=== PATIENT | female | born 1995 | race Caucasian/White ===

== ENCOUNTER → 2024-05-22 | Outpatient (CLI) | payer BC, SELFPAY ==
[2024-05-29 00:07] LABS: HPV APTIMA, High Risk Negative (Negative)
[2024-05-30 10:25] LABS: HPV Reflexed? YES, CHARGE PATIENT
== END | disposition home or self-care (01) ==
LOC: LABSPEC 10:07
PROVIDERS: Referring Provider Nurse Practitioner Women's Health; Visit Provider Nurse Practitioner Women's Health
DX: Z12.4 Encounter for screening for malignant neoplasm of cervix (principal)
CPT/HCPCS: 87624; 88175; G0145

== ENCOUNTER 2024-07-02 10:00 | Day surgery (SDC) | payer BC, SELFPAY ==
[2024-07-02] VITALS (11 sets, daily range): BP systolic 133–169; BP diastolic 89–118; PULSE 58–104; RESP 14–18; TEMP 36.1–37.3; O2SAT 97–100; BMI 26.2
--- NOTE | 2024-07-02 10:41 | US_ITS ---
PROCEDURE: TRANSVAGINAL NON- 07/02/2024 REASON FOR EXAM: LEFT OVARIAN PAIN, MASS, EVAL FOR TORSION TECHNIQUE: Transvaginal pelvic ultrasound COMPARISON: None FINDINGS: Measurements: Uterus: 7.7 cm x 3.1 cm x 2.8 cm with a volume of 35.2 mL Endometrial Thickness: 2.2 cm Right Ovary: 3.4 cm x 3 cm x 2.7 cm with a volume of 14.24 mL. Left Ovary: 6.2 cm x 7.4 cm x 3.8 cm with a volume of 90 mL. Uterus: Unremarkable Endometrium: Endometrial thickening Right ovary: Normal size and echotexture. Left ovary: Heterogeneous mass within the left ovary. Decreased blood flow. Torsion should be ruled out. Other: US/Transvaginal Non- IMPRESSION: Heterogeneous mass in nonenlarged left ovary with decreased blood flow suggesti ve of torsion. Reading Location: [place] [id number]
--- NOTE | 2024-07-02 10:42 | EDS_ITS ---
HPI History of Present Illness Chief Complaint: Abd Pain Informant: patient and spouse/S.O. Narrative Narrative: 29-year-old female has been having left pelvic pain for about the past week, she saw gynecology had an outpatient ultrasound that showed a mass in her left ovary, which led to tumor markers being drawn that are not yet back, an MRI that has been ordered but not yet obtained, and referral to gynecologic oncology which is not yet happened. She saw Kathya Miranda here in [place]. Suddenly this morning the pain got worse and now it is severe, associated with a couple episodes of vomiting. She denies any other new symptoms. [facility] Medical History Emotional problems Hypertension Home Medications ?Medication ?Instructions ?Recorded ?Last Taken ?Type losartan 50 mg-hydrochlorothiazide 1 tab PO QDAY 05/16 Unknown History 12.5 mg tablet sertraline 50 mg tablet 50 mg PO QDAY 05/16/24 Unkno wn History levonorgestrel-ethinyl estradiol 1 tab PO QDAY #84 tab s 05/22/24 Unknown Rx 0.1 mg-20 mcg tablet (Sronyx) Allergy/AdvReac Type Severity Reaction Status Date / Time lisinopril Allergy Mild cough Verified 07/02/24 10:03 Family History Mother Anxiety Depression Father Diabetes, Onset Age: 58 Myocardial infarction, Onset Age: 58 Hypertension Grandmother Breast cancer Aunt Breast cancer Maternal 1/2 Aunt Social History household members: spouse current occupational status: employed 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- [employer] Smoking Status: Never smoker alcohol intake: current alcohol intake frequency: other details: 1-3 drinks on the weekend substance use type: does not use what type of physical activity do you participate in: running and weight training frequency: 3-4 times per week seatbelt use: always do you feel safe at home: Yes additional social history: - Benjy- Studio Art Fountain Jerk at [facility] ROS ED Constitutional Constitutional ED: Denies chills or fever(s) Eyes Eyes: Denies change in vision or diplopia ENT ENT ED: Denies rhinorrhea or sore throat Cardiovascular Cardiovascular: Denies chest pain or palpitations Respiratory/Chest Respiratory/Chest: Denies cough or dyspnea Gastrointestinal Gastrointestinal: Reports abdominal pain, nausea and vomiting; Denies diarrhea Genitourinary Genitourinary ED: Denies dysuria or hematuria Musculoskeletal Musculoskeletal: Denies back pain or neck pain Integumentary Denies abscess or rash Neurologic Neurologic: Denies headache(s), paresthesias or weakness Psychiatric Psychiatric: Denies suicidal thoughts EXAM Physical Exam Const Vital Signs: 07/02/24 10:02 Temperature 97.8 F Temperature Source Oral Pulse Rate 72 Respiratory Rate 18 Blood Pressure 162/111 H Blood Pressure Mean 128 Pulse Ox 100 Oxygen Delivery Method Room Air Positive well nourished and well developed General Appearance ED: well developed and NAD HEENT Reports moist mucous membranes normocephalic and atraumatic Eyes PERRL and EOMs intact bilaterally Neck full ROM and supple Resp normal respiratory effort and clear to auscultation bilaterally Cardio regular rate, regular rhythm and no murmurs GI non-distended GI Narrative: Very tender in the left distal lower quadrant with a little bit of voluntary guarding, otherwise benign abdomen Auscultation: normoactive bowel sounds Palpation: soft Back/Spine no CVA tenderness General Back: other FROM Extremity normal to inspection General Extremety ED: Negative for edema, pulses abnormal or tenderness General Extremity: Negative for edema or pulses abnormal Neuro oriented x3, CN's II-XII intact bilaterally and no sensory deficits noted Sensorium / Orientation: awake and alert Motor Exam: strength 5/5 throughout Skin no rashes or lesions noted and no wounds MDM MDM MDM Narrative Medical decision making narrative: I reviewed the patient's outpatient ultrasound that was obtained at [facility] and entered into our system, it shows a 5.9 cm mass in the left ovary that is avascular but the blood flow to the rest of the ovary was normal at the time and other than a small fibroid everything else looked normal. My concern now is that she torsed. I discussed with Dr. Lynch, who states that indeed they referred the patient to gynecologic oncology, and recommends obtaining a repeat stat ultrasound to evaluate for torsion now. History & Record Review Additional record(s) reviewed:: Prior outpatient record ([employer] ultrasound 06/26/2024) Discharge Plan Triage Chief Complaint: Abd Pain ED Provider: Randell Greene Dx/Rx/DC Orders Prescriptions: No Action levonorgestrel-ethinyl estrad [Sronyx] 0.1-20 mg-mcg tablet 1 tab PO QDAY Qty: 84 4RF losartan-hydrochlorothiazide 50-12.5 mg tablet 1 tab PO QDAY sertraline 50 mg tablet 50 mg PO QDAY Primary Care Provider: Jeaneth Campbell Referrals: Jeaneth Campbell, VERIFICATION CLERK-C [Primary Care Provider] - Print Language: Greek
--- NOTE | 2024-07-02 10:42 | EX.ED.DYSGE1 ---
HPI History of Present Illness Chief Complaint: Abd Pain Informant: patient and spouse/S.O. Narrative Narrative: 29-year-old female has been having left pelvic pain for about the past week, she saw gynecology had an outpatient ultrasound that showed a mass in her left ovary, which led to tumor markers being drawn that are not yet back, an MRI that has been ordered but not yet obtained, and referral to gynecologic oncology which is not yet happened. She saw Kathya Miranda here in [place]. Suddenly this morning the pain got worse and now it is severe, associated with a couple episodes of vomiting. She denies any other new symptoms. [facility] Medical History Emotional problems Hypertension Home Medications ?Medication ?Instructions ?Recorded ?Last Taken ?Type losartan 50 mg-hydrochlorothiazide 1 tab PO QDAY 05/16/24 Unknown History 12.5 mg tablet sertraline 50 mg tablet 50 mg PO QDAY 05/16/24 Unknown History levonorgestrel-ethinyl estradiol 1 tab PO QDAY #84 tabs 05/22/24 Unknown Rx 0.1 mg-20 mcg tablet (Sronyx) Allergy/AdvReac Type Severity Reaction Status Date / Time lisinopril Allergy Mild cough Verified 07/02/24 10:03 Family History (Reviewed 05/22/24 @ 09:18 by Kathya Miranda SUPERVISOR ASSEMBLY [employer]PARTMENT, SUPERVISOR ASSEMBLY [employer]PARTMENT-C) Mother Anxiety Depression Father Diabetes, Onset Age: 58 Myocardial infarction, Onset Age: 58 Hypertension Grandmother Breast cancer Aunt Breast cancer Maternal 1/2 Aunt Social History household members: spouse current occupational status: employed 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[employer] Smoking Status: Never smoker alcohol intake: current alcohol intake frequency: other details: 1-3 drinks on the weekend substance use type: does not use what type of physical activity do you participate in: running and weight training frequency: 3-4 times per week seatbelt use: always do you feel safe at home: Yes additional social history: - Benjy- Studio Art Driver Manager at [facility] ROS ED Constitutional Constitutional ED: Denies chills or fever(s) Eyes Eyes: Denies change in vision or diplopia ENT ENT ED: Denies rhinorrhea or sore throat Cardiovascular Cardiovascular: Denies chest pain or palpitations Respiratory/Chest Respiratory/Chest: Denies cough or dyspnea Gastrointestinal Gastrointestinal: Reports abdominal pain, nausea and vomiting; Denies diarrhea Genitourinary Genitourinary ED: Denies dysuria or hematuria Musculoskeletal Musculoskeletal: Denies back pain or neck pain Integumentary Denies abscess or rash Neurologic Neurologic: Denies headache(s), paresthesias or weakness Psychiatric Psychiatric: Denies suicidal thoughts EXAM Physical Exam Const Vital Signs: 07/02/24 10:02 07/02/24 12:07 Temperature 97.8 F Temperature Source Oral Pulse Rate 72 58 L Respiratory Rate 18 18 Blood Pressure 162/111 H 169/118 H Blood Pressure Mean 128 135 Pulse Ox 100 97 Oxygen Delivery Method Room Air Room Air Positive well nourished and well developed General Appearance ED: well developed and NAD HEENT Reports moist mucous membranes normocephalic and atraumatic Eyes PERRL and EOMs intact bilaterally Neck full ROM and supple Resp normal respiratory effort and clear to auscultation bilaterally Cardio regular rate, regular rhythm and no murmurs GI non-distended GI Narrative: Very tender in the left distal lower quadrant with a little bit of voluntary guarding, otherwise benign abdomen Auscultation: normoactive bowel sounds Palpation: soft Back/Spine no CVA tenderness General Back: other FROM Extremity normal to inspection General Extremety ED: Negative for edema, pulses abnormal or tenderness General Extremity: Negative for edema or pulses abnormal Neuro oriented x3, CN's II-XII intact bilaterally and no sensory deficits noted Sensorium / Orientation: awake and alert Motor Exam: strength 5/5 throughout Skin no rashes or lesions noted and no wounds MDM MDM MDM Narrative Medical decision making narrative: I reviewed the patient's outpatient ultrasound that was obtained at [facility] and entered into our system, it shows a 5.9 cm mass in the left ovary that is avascular but the blood flow to the rest of the ovary was normal at the time and other than a small fibroid everything else looked normal. My concern now is that she torsed. I discussed with Dr. Cain, who states that indeed they referred the patient to gynecologic oncology, and recommends obtaining a repeat stat ultrasound to evaluate for torsion now. This was obtained I reviewed the imaging and the report which I agree with, it is suspicious for torsion. Discussed with gynecology again, and the patient, her pain is under better control after a second dose of analgesics, and she will be going from the ED to the OR. History & Record Review Additional record(s) reviewed:: Prior outpatient record ([facility] ultrasound 06/26/2024) Lab Data Attestation: I reviewed the patient's lab results. Labs: Laboratory Results - last 24 hr 07/02/24 07/02/24 10:49 11:45 WBC 8.0 RBC 4.67 Hgb 14.5 Hct 41.4 MCV 88.7 MCH 31.0 MCHC 35.0 RDW Std Deviation 40.0 RDW Coeff of Renee 12.3 Plt Count 223 MPV 11.9 Immature Gran % (Auto) 0.400 Neut % (Auto) 70.3 H Lymph % (Auto) 24.9 [place] % (Auto) 3.6 Eos % (Auto) 0.4 Baso % (Auto) 0.4 Absolute Neuts (auto) 5.7 Absolute Lymphs (auto) 2.00 Nucleated RBC % 0 Sodium 136 Potassium 3.5 Chloride 102 Carbon Dioxide 19.5 L Anion Gap 14 BUN 17 Creatinine 0.75 Estim Creat Clear Calc 114.68 Est GFR (MDRD) Non-Af 112 BUN/Creatinine Ratio 23.1 H Glucose 102 H Calcium 9.5 Serum , Qual NEGATIVE Urine Color Yellow Urine Clarity Sl. Cloudy Urine pH 8.0 Ur Specific [place] 1.010 Urine Protein 15 H Urine Glucose (UA) Normal Urine Ketones 50 H Urine Occult Blood Negative Urine Nitrite Negative Urine Bilirubin Negative Urine Urobilinogen Normal Ur Leukocyte Esterase 25 H Urine RBC 0 SEEN Urine WBC 0-5 SEEN Ur Squamous Epith Cells 0-5 SEEN Urine Bacteria 2+ Urine Mucus 1+ Radiography Diagnostic Testing: Clinical Impression(s) from Imaging Studies Transvaginal US 07/02/24 10:41 IMPRESSION: Heterogeneous mass in nonenlarged left ovary with decreased blood flow suggestive of torsion. Reading Location: [facility] Management Discussion w/another healthcare provider: Landscape Drafter (Gynecology Dr. Cain) Critical Care Time Critical Care Time: Yes Critical care time (excluding procedures): 30-74 minutes (32 min), Including time spent:, Discussing w/Patient &/or Family/Lottery Manager, Discussing w/Consultants, Arranging Admission or Transfer and Performing Direct Patient Care at Bedside Discharge Plan Triage Chief Complaint: Abd Pain ED Provider: Randell Greene Dx/Rx/DC Orders Clinical Impression: Torsion of left ovary, Mass of left ovary Primary Care Provider: Jeaneth Campbell Disposition Disposition: Acute Care Hospital [facility]
[2024-07-02] MEDS: Morphine 4 MG/ML Syringe IV (10:52)
[2024-07-02] MEDS: Ondansetron 4 MG/2 ML Vial IV (10:52)
[2024-07-02 11:16] LABS: Internal QC Validated? YES +Cl - CLEAR BKGD; Pregnancy, Serum, hCG Quali. NEGATIVE Negative
[2024-07-02 11:21] LABS: Absolute Neutrophil Count 5.7 X10^3/uL (2.0-7.7); Anion Gap 14 (5-15); BUN 17 mg/dL (4-19); BUN/Creat Ratio 23.1 RATIO (10-20); Basophil# 0.03 X10^3/uL; Basophil% 0.4 % (0-1); Calcium,Total 9.5 mg/dL (7.6-11.0); Carbon Dioxide 19.5 mmol/L (21.0-32.0); Chloride 102 mmol/L (98-108); Creatinine, Serum 0.75 mg/dL (0.70-1.20); EST Glomerular Filtration Rate 112 (>60); Eosinophil# 0.03 X10^3/uL; Eosinophils% 0.4 % (0-5); Estimated Creatinine Clearance 114.68 ml/min (50-250); Glucose 102 mg/dL (70-99); Hematocrit 41.4 % (37-47); Hemoglobin 14.5 g/dL (12.0-15.0); Lymphocyte % 24.9 % (19-41); Mean Corpuscular Volume 88.7 fL (81-99); Mean Platelet Vol. 11.9 fl (6.2-12.0); Monocyte# 0.29 X10^3/uL; Monocyte% 3.6 % (0-10); NRBC Flagged by Analyzer 0 % (0-5); Neutrophil # 5.66 X10^3/uL (2.7-7.7); Neutrophil % 70.3 % (47-70); Platelet Count 223 K/mm3 (150-450); Potassium 3.5 mmol/L (3.3-5.1); RBC Distribution Width CV 12.3 % (11.6-14.6); Red Blood Count 4.67 M/mm3 (4.2-5.4); Sodium Level 136 mmol/L (133-145)
[2024-07-02 12:28] LABS: Red Blood Cells-Urine 0 SEEN /hpf (0-5)
[2024-07-02] MEDS: Metoclopramide 10 MG/2 ML Vial 5 MG IV (12:36)
[2024-07-02] MEDS: fentaNYL 100 MCG/2 ML Ampul 50 MCG IV (12:36)
[2024-07-02 12:46] LABS: Color, Urine Yellow (Yellow); Glucose, Dipstick Normal (Normal); Ketone-Dipstick 50 mg/dl (Negative); Leukocyte Esterase-Dipstick 25 /ul (Negative); Nitrite-Dipstick Negative (Negative); Occult Blood-Urine Negative /ul (Negative); Protein-Dipstick 15 mg/dl (Negative); Urine Bilirubin Dipstick Negative (Negative); Urine Clarity Sl. Cloudy (Clear); Urine Urobilinogen Normal (Normal)
[2024-07-02 12:59] LABS: Bacteria 2+ /hpf (None Seen); Mucous, Urine 1+ /hpf (<or=2+); Squamous Epithelial Cells - UA 0-5 SEEN /hpf (5-10)
[2024-07-02 13:00] LABS: White Blood Cells 0-5 SEEN /hpf (0-5)
--- NOTE | 2024-07-02 13:26 | PRE.ANES_ITS ---
ASA Classification* ASA Classification ASA Classification: 2 and E Assessment & Plan Anesthesia* Anesthesia Assessment Anesthesia Assessment: Discussed sedation and/or anesthesia options, risks, benefits, and alternatives with patient/parents/legal guardian/POA. Questions invited. The patient/parents/legal guardian/POA seems to understand and agrees to proceed with anesthesia plan. Reviewed the physical assessment, medical history, allergy history and patient home medications list prior to surgery/procedure/anesthetic and documented any changes. Performed airway and anesthesia risk assessments. Anesthesia Type Anesthesia Type: General Anesthesia Focused Assessment* Temperature: 97.8 F Pulse Rate: 58 Blood Pressure: 169/118 Respiratory Rate: 18 Pulse Ox: 97 Airway Assessment Mouth opens: >3 cm Mallampati Score: II Focused Labs Anesthesia Preop lab: CBC WBC 8.0 K/mm3 (4.4-11.0) 07/02/24 10:49 07/02/24 RBC 4.67 M/mm3 (4.2-5.4) 07/02/24 10:49 07/02/24 Hgb 14.5 g/dL (12.0-15.0) 07/02/24 10:49 07/02/24 Hct 41.4 % (37-47) 07/02/24 10:49 07/02/24 Plt Count 223 K/mm3 (150-450) 07/02/24 10:49 07/02/24 CHEMISTRY Potassium 3.5 mmol/L (3.3-5.1) 07/02/24 10:49 07/02/24 Sodium 136 mmol/L (133-145) 07/02/24 10:49 07/02/24 BUN 17 mg/dL (4-19) 07/02/24 10:49 07/02/24 Creatinine 0.75 mg/dL (0.70-1.20) 07/02/24 10:49 07/02/24 Glucose 102 mg/dL (70-99) H 07/02/24 10:49 07/02/24 COAG Pre-Assessment Diagnosis/Proposed Procedure Planned Operative Procedure(s): Exploratory laparoscopy, repair ovarian torsion Anesthesia History 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 When Was Last Pacemaker Check QUESTION #4 FULL TEXT: You/Your Family Experience fever (hyperthermia) with Anesthesia Last Oral Intake Last Oral intake: Last Oral Intake NPO since Meds taken in AM with sips of water? Meds patient instructed to take am of surgery PONV PONV - lithograph press operator tinware: PONV - lithograph press operator tinware Female HX of Motion Sickness HX of N/V After Surgery Non-Smoker Duration of Surgery greater than 60 minutes Number of Risk Factors PONV Score Height & Weight Height & Weight: Anesthesia: Height & Weight Height 5 ft 6 in 07/02/24 10:02 Weight: 73.68 kg 07/02/24 10:02 Body Mass Index (BMI) 26.2 07/02/24 10:02 Respiratory Assessment Respiratory Assessment - lithograph press operator tinware: Respiratory Tract Infection Hx - lithograph press operator tinware Hx Respiratory Tract Infection STOP Sleep Apnea STOP Sleep Apnea - lithograph press operator tinware: STOP Sleep Apnea - lithograph press operator tinware Hx Hypertension Hx Sleep Apnea CPAP BIPAP Do you snore loudly (louder than talking or can be heard Do you often feel tired/ fatigued/ sleepy during daytime? Has anyone observed you stop breathing during sleep? STOP Results QUESTION #5 FULL TEXT : Do you snore loudly (louder than talking or can be heard through closed doors)? Tobacco Use History Tobacco Use History - lithograph press operator tinware: Tobacco Use History - lithograph press operator tinware Tobacco Use Smoking Status Never smoker 07/02/24 11:13 Hx Tobacco Use Years Smoking Packs Smoked per Day Smoking Cessation Date was within the last 15 years Hx Smoking Cessation Date Hx Smoking Cessation Counseling Hematologic Medial History Hematologic Hx - lithograph press operator tinware: Hematologic Medical Hx - crushed stone grader Hx of Blood Transfusion Hx of Transfusion in last 3 Months Date of Last Transfusion (if within last 3 months) Ever experience any problems with transfusion(s)? Specify any problems Hx of Preganancy in last 3 Months Nurse Filling Out Transfusion & Questions: Date: Time: Patient unable to answer at this time (ie. confused, unrespo /Reproduction History /Reproductive History - lithograph press operator tinware: /Reproductive Hx- lithograph press operator tinware Hx Now Gestational Age (in weeks): EDC: Hx Hx Para Hx Section SAB No 07/02/24 10:02 Active Medications Active Medications: Current Medications Generic Name Dose Route Start Last Admin Trade Name Emiliano PRN Reason Stop Dose Admin Sodium Chloride 1,000 mls @ 15 mls/hr 07/02/24 13:20 IV .Q48H [facility]SH Medical History Emotional problems Hypertension Home Medications ?Medication ?Instructions ?Recorded ?Last Taken ?Type losartan 50 mg-hydrochlorothiazide 1 tab PO QDAY 05/16 Unknown History 12.5 mg tablet sertraline 50 mg tablet 50 mg PO QDAY 05/16/24 Unkno wn History levonorgestrel-ethinyl estradiol 1 tab PO QDAY #84 tab s 05/22/24 Unknown Rx 0.1 mg-20 mcg tablet (Sronyx) Allergy/AdvReac Type Severity Reaction Status Date / Time lisinopril Allergy Mild cough Verified 07/02/24 10:03 Family History Mother Anxiety Depression Father Diabetes, Onset Age: 58 Myocardial infarction, Onset Age: 58 Hypertension Grandmother Breast cancer Aunt Breast cancer Maternal 1/2 Aunt Social History household members: spouse current occupational status: employed 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
--- NOTE | 2024-07-02 13:30 | HP.PCM.OB_ITS ---
HPI - General HPI Narrative TERRY LORENZO, is a 29 F who presents with acute lower pelvic pain, worsening since this morning, nausea and vomiting. she was diangosed with a 5 cm left ovarian lesion last week. she denies any bleeding or dichsrge, seen in ER and diagnosed with torsion, appears like endometrioma PFSH [facility] Medical History Emotional problems Hypertension Home Medications ?Medication ?Instructions ?Recorded ?Last Taken ?Type losartan 50 mg-hydrochlorothiazide 1 tab PO QDAY 05/16 Unknown History 12.5 mg tablet sertraline 50 mg tablet 50 mg PO QDAY 05/16/24 Unkno wn History levonorgestrel-ethinyl estradiol 1 tab PO QDAY #84 tab s 05/22/24 Unknown Rx 0.1 mg-20 mcg tablet (Sronyx) Allergy/AdvReac Type Severity Reaction Status Date / Time lisinopril Allergy Mild cough Verified 07/02/24 10:03 Family History Mother Anxiety Depression Father Diabetes, Onset Age: 58 Myocardial infarction, Onset Age: 58 Hypertension Grandmother Breast cancer Aunt Breast cancer Maternal 1/2 Aunt Social History household members: spouse current occupational status: employed 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- [employer] Smoking Status: Never smoker alcohol intake: current alcohol intake frequency: other details: 1-3 drinks on the weekend substance use type: does not use what type of physical activity do you participate in: running and weight training frequency: 3-4 times per week seatbelt use: always do you feel safe at home: Yes additional social history: - Benjy- Studio Art Supervisor [employer] Production at [facility] [place] History 0 Elective abortions Hx Para Spontaneous abortions Hx # Term Pregnancies Ectopic pregnancies Hx # Pregnancies Multiple births # of living children ROS Constitutional Constitutional: Reports systems reviewed and no addt'l complaints, except as documented; Denies as per HPI, change in weight, fatigue, fever(s), malaise, weakness or other Eyes Eyes: Reports systems reviewed and no addt'l complaints, except as documented; Denies as per HPI, change in vision or other ENT HEENT: Reports systems reviewed and no addt'l complaints, except as documented Respiratory/Chest Respiratory/Chest: Reports systems reviewed and no addt'l complaints, except as documented Gastrointestinal Gastrointestinal: Reports systems reviewed and no addt'l complaints, except as documented and as per HPI Genitourinary Genitourinary: Reports as per HPI Musculoskeletal Musculoskeletal: Reports systems reviewed and no addt'l complaints, except as documented Neurologic Neurologic: Reports systems reviewed and no addt'l complaints, except as documented Psychiatric Psychiatric: Reports systems reviewed and no addt'l complaints, except as documented Endocrine Endocrinology: Reports systems reviewed and no addt'l complaints, except as documented Hematologic/Lymphatic Hematologic/Lymphatic: Reports systems reviewed and no addt'l complaints, except as documented Vital Signs Vital Signs Vital Signs: 07/02/24 10:02 07/02/24 12:07 07/02/24 13:27 Temperature 97.8 F 97.8 F Temperature Source Oral Pulse Rate 72 58 L 58 L Respiratory Rate 18 18 18 Blood Pressure 162/111 H 169/118 H 169/118 H Blood Pressure Mean 128 135 Pulse Ox 100 97 97 Oxygen Delivery Method Room Air Room Air Weight Weight: 162 lb 7 oz Body Mass Index (BMI) 26.2 Physical Exam Const alert, oriented x3 and no apparent distress HEENT normocephalic Head and Scalp: atraumatic Eyes EOMs intact bilaterally and conjunctivae normal Neck full ROM, no lymphadenopathy, supple and thyroid normal General: trachea midline Lymph Lymphatic: no lymphadenopathy noted Resp normal respiratory effort, no retractions and no use of accessory muscles Cardio Rate: tachycardic GI normal to inspection, nondistended, normoactive bowel sounds, soft to palpation, non-distended and no masses GI Narrative: mild tender lower Inspection: Negative for abdominal distention Back/Spine no CVA tenderness Extremity normal to inspection Skin no rashes or lesions noted Neuro moves all extremities and deep tendon reflexes 2+ bilaterally Psych mental status grossly normal Labs Labs Labs: Hct 41.4 % (37-47) Hgb 14.5 g/dL (12.0-15.0) Pap Smear Negative Assessment & Plan (1) Torsion of left ovary: (2) Mass of left ovary: PLAN: Plan After discussing the patient's diagnosis and treatment plan options, patient wishes to proceed with surgical management. I have discussed with the patient the risks, benefits, and alternatives of the procedure which include but are not limited to risks of anesthesia, bleeding, infection, possible damage to bowel, bladder, or surrounding vasculature which could lead to additional surgery to evaluate any complications. Patient agrees to procedure and wishes to proceed. ACOG/uptodate references given for additional information regarding procedure. take for lparoscopic detorsion possible ovarian cystectomy possible oophorectomy discussed possible benign versus cancer risk, proceed with surgery patient agrees.
[2024-07-02] MEDS: 0.9% Normal Saline (1000mL) 1,000 ML 15 ML IV (13:33)
--- NOTE | 2024-07-02 13:53 | PCM.OPRPT ---
Problems Associated Problem List Diagnoses (1) Mass of left ovary: (2) Torsion of left ovary: Multi Select Codes Urinary/Genital Urinary/Genital CPT Codes: Other Procedure See Report (88117) Operative Report (Standard) Operative Information Date of Procedure: 07/02/24 Pre-Operative Diagnosis: see problem list Post-Operative Diagnosis: same Surgery/Procedure Performed: laparoscopic treatment of torsion, diagnostic laparoscopy credit collections analyst: Yes Sheet Metal Worker Helper: Dc Mc Tasks completed by assistant loan processor: Opening & closing, Altering tissue and Insert Trochanter Additional cataloging assistant?: No Type of Anesthesia: General RN Documented Start/Stop Times: Operation Date: 07/02/24 13:30 Case Time Into Pre-Op 07/02/24 13:15 Anesthesia Start 07/02/24 13:50 Into Room 07/02/24 13:50 Procedure Start 07/02/24 14:17 Procedure End 07/02/24 15:19 Anesthesia End 07/02/24 15:30 Out of Room 07/02/24 15:30 Into Recovery 07/02/24 15:32 Into Phase II Recovery 07/02/24 16:05 Out of Recovery 07/02/24 16:05 Out of Phase II 07/02/24 16:54 Procedure Start Time: 14:17 Procedure Stop Time: 15:19 Select all DRAINS/GRAFTS/IMPLANTS that apply: None Estimated Blood Loss: 25 Specimen collected: No Description of surgery: Patient was taken in the operating room and was placed under general anesthesia was prepped and draped in normal sterile fashion in the dorsal lithotomy position. Bladder was drained of clear urine and SCDs were on preoperatively. Uterus was sounded and a uterine manipulator was placed after dilating. Attention was then paid to the abdominal portion of the procedure and the umbilicus was elevated with towel clamps and injected with Marcaine and after a 5 mm incision was made and the Veress needle was entered into the abdomen confirmed to be intra-abdominal with a low opening pressure of less than 5 mmHg. Abdomen was insufflated with CO2 gas and a 5 mm optical trocar was placed under direct visualization. Left and right lower quadrant 5 mm ports were placed under direct visualization. Uterus was well visualized and upon inspection of the pelvis double twisted torsion of the left tube and ovary were noted in the pelvis with edema noted in the ovary and tube. The tube and ovary were detorsed and immediate blood flow was noted to both structures. Swelling of the tube decreased immediately and a normal appearance resumed. The right tube and ovary were noted to be within normal limits with no abnormalities or edema seen. The left ovary was noted to be grossly enlarged in appearance no specific lesion noted several incisions were made over the ovary to try and determine where the lesion was seen within the ovary that was suspicious and all that was encountered was dense edema in this tissue that was suspected to be due to the detorsion. The ovary appeared to be polycystic in nature and just enlarged with ovarian volume. No specific mass was seen but an overall normal appearance to the ovary was noted. At this time due to the nonspecific nature and ability to determine if there is an actual mass within the ovary and the overall normal appearance and the patient's age and no other risk factors the decision to leave the ovary in situ was made rather than around the risk of removing a normal ovary. Surgiflo was placed over the incisional areas on the ovary to ensure hemostasis which was noted. Again the areas were checked and no concern for torsion was noted. Excellent hemostasis was noted in the pelvis. Liver and upper abdomen were visualized notably within normal limits and no other gross abnormalities were seen in the abdomen. All instruments removed from the abdomen after gas was desufflated. Port sites were closed with 3-0 Monocryl Steri's and op sites were applied. All instruments removed from the vagina and patient was awoken and taken recovery in stable condition. Surgical Findings: enlarged edematous left ovary, torsed left ovary and tube, good blood supply after detorsion, viable organs Complications Complications: No
[2024-07-02] MEDS: Bupivacaine 0.25% 30 ML Vial (14:18)
--- NOTE | 2024-07-02 15:30 | PCM.DC ---
Documented by User: Dr. Malissa Borden DO 07/02/24 16:34 Discharge Instructions Diet Discharge Diet: No restrictions DC O2, CPAP, BIPAP needs Home O2 Discharge instructions: No Dressing / Incision Discharge Activity: Return to Normal Activity, May Not Drive (for two weeks or while taking narcotic pain medications.), May Shower and May Take a Tub Bath (in 7 days) May resume sexual activity in: 1 week Weight Bearing Status: Full weight bearing Dressing / Incision Call your doctor if you observe: Using more than 1 pad per hour, Shortness of breath, Chest pain and Uncontrolled pain Suture Line Care: Avoid Pulling/Pushing and Avoid Pinching/Bending Remove Dressing in: 1 week (if present) Cleanse incision/area with: Soap & Water and Keep Dressing Clean & Dry Follow Up Care Please Follow Up With: Malissa Borden DO When: Call to make an appointment with your doctor for a follow up incision check in 1-2 weeks. Discharge Plan Admission Attending Provider: Molly Cain Primary Care Provider: Jeaneth Campbell Instructions Print Language: Burkinan Discharge Orders/Prescriptions Prescriptions: No Action levonorgestrel-ethinyl estrad [Sronyx] 0.1-20 mg-mcg tablet 1 tab PO QDAY Qty: 84 4RF losartan-hydrochlorothiazide 50-12.5 mg tablet 1 tab PO QDAY sertraline 50 mg tablet 50 mg PO QDAY Referrals / Follow Up: Jeaneth Campbell, I[employer] PROGRAMMER-C [Primary Care Provider] - Disposition Disposition (needs filled in before D/C Order can be placed): Home, Self Care Documented by User: Dr. Molly Cain MD Discharge Instructions Follow Up Care Test Results: Test results from this visit will be discussed in further detail at your follow-up appointment, if applicable. Discharge Plan Admission Attending Provider: Molly Cain Primary Care Provider: Jeaneth Campbell Instructions Print Language: Burkinan Discharge Orders/Prescriptions Prescriptions: No Action levonorgestrel-ethinyl estrad [Sronyx] 0.1-20 mg-mcg tablet 1 tab PO QDAY Qty: 84 4RF losartan-hydrochlorothiazide 50-12.5 mg tablet 1 tab PO QDAY sertraline 50 mg tablet 50 mg PO QDAY Referrals / Follow Up: Jeaneth Campbell, [employer] PROGRAMMER-C [Primary Care Provider] - Disposition Disposition (needs filled in before D/C Order can be placed): Home, Self Care
--- NOTE | 2024-07-02 15:33 | PCM.POST.ANE ---
Anesthesia: Postop Eval I Current Vital Signs Temperature: 97 F Pulse Rate: 104 Blood Pressure: 133/89 Respiratory Rate: 14 Pulse Ox: 100 Oxygen Delivery Method: Room Air Assessment Airway patent: Yes Spontaneous unlabored respirations: Yes Mental status: Awake and Calm nausea: No Vomiting: No Anesthesia Complication: No Fluid Hydration Crystalloid volume administer (ml): 900 Total IV fluid infused: 900 Progress Note Anesthesia document: Postop Eval 1 completed: Yes
--- NOTE | 2024-07-03 09:06 | POSTOPAN2_ITS ---
Anesthesia Postop Eval I Sum Postop Eval Completion status Anesthesia document: Postop Eval 1 completed: Yes Anesthesia Postop Eval I Summary Anesthesia Postop Eval I Summary: Anesthesia Postop Eval I: Assessment Summary Airway patent Yes 07/02/24 15:33 MANAGER OF [email or web address] Spontaneous unlabored Yes 07/02/24 15:33 MANAGER OF [email or web address].MDOT respirations Mental status Awake,Calm 07/02/24 15:33 MANAGER OF [email or web address].MDOT nausea No 07/02/24 15:33 MANAGER OF [email or web address] Vomiting No 07/02/24 15:33 MANAGER OF [email or web address] Anesthesia Postop Eval I: Fluid Summary Crystalloid volume administer 900 07/02/24 15:33 MANAGER OF [email or web address].MDOT (ml) Colloids volume administered ( ml) Blood Product volume administered (ml) Total IV fluid infused 900 07/02/24 15:33 MANAGER OF [email or web address].[email or web address] Anesthesia Postop Eval I: Summary Notes Anesthesia Complication No 07/02/24 15:33 MANAGER OF [email or web address].[email or web address] Anesthesia Complication Comment: Post-operative progress note Anesthesia: Postop Eval II Evaluation Mental status: Awake and Calm Pain Level: 1 nausea: No Vomiting: No Complications Anesthesia Complication: No
--- NOTE | 2024-07-03 09:06 | PCM.POSTANE2 ---
Anesthesia Postop Eval I Sum Postop Eval Completion status Anesthesia document: Postop Eval 1 completed: Yes Anesthesia Postop Eval I Summary Anesthesia Postop Eval I Summary: Anesthesia Postop Eval I: Assessment Summary Airway patent Yes 07/02/24 15:33 HAND I [email or web address] Spontaneous unlabored Yes 07/02/24 15:33 HAND I [email or web address] respirations Mental status Awake,Calm 07/02/24 15:33 HAND I [email or web address] nausea No 07/02/24 15:33 HAND I [email or web address] Vomiting No 07/02/24 15:33 HAND I [email or web address] Anesthesia Postop Eval I: Fluid Summary Crystalloid volume administer 900 07/02/24 15:33 HAND I [email or web address] (ml) Colloids volume administered ( ml) Blood Product volume administered (ml) Total IV fluid infused 900 07/02/24 15:33 HAND I [email or web address] Anesthesia Postop Eval I: Summary Notes Anesthesia Complication No 07/02/24 15:33 HAND I [email or web address] Anesthesia Complication Comment: Post-operative progress note Anesthesia: Postop Eval II Evaluation Mental status: Awake and Calm Pain Level: 1 nausea: No Vomiting: No Complications Anesthesia Complication: No
== END 2024-07-02 16:57 | disposition home or self-care (01) ==
LOC: ED 13:05 → SDC 13:14 → ACINP 13:16
PROVIDERS: Emergency Provider Emergency Medicine; PCP Nurse Practitioner Family; Referring Provider Obstetrics & Gynecology; Visit Provider Obstetrics & Gynecology
PROC: (CPT 58720; principal; 2024-07-02 13:15)
DX: N83.53 Torsion of ovary, ovarian pedicle and fallopian tube (principal); I10 Essential (primary) hypertension
CPT/HCPCS: 58679; 00940; 76830; 80048; 81001; 84703; 85025; 99282; A4216; J2405